=== PATIENT | female | born 1965 | race African-American/Black ===

== ENCOUNTER → 2016-10-31 | Outpatient (CLI) | payer OTHER ==
--- NOTE | 2016-11-01 09:32 | WOMENS IMAGING REPORT ---
EXAM DESCRIPTION: 3D SCREENING MAMMO BILAT COMPLETED DATE/TIME: 10/31/2016 8:49 am REASON FOR STUDY: ROUTINE BILATERAL SCREENING;Z12.31 Z12.31 ENCNTR SCREEN MAMMOGRAM FOR MALIGNANT N EOPLASM OF KHADAR COMPARISON: None. 07/06/2014 TECHNIQUE: Standard craniocaudal and mediolateral oblique views of each breast recorded using Tadpolesa l acquisition. LIMITATIONS: None. FINDINGS: Findings present which are benign by mammographic criteria. No suspicious masses, calcifi cations or architectural distortion. Pertinent benign findings: Stable small benign intramammary lymph nodes Read with the assistance of CAD. .[facility] - R2 Cenova Version 1.3 .[facility] - R2 Cenova Version 1.3 .[facility] - R2 Cenova Version 2.4 .[facility] [place] - R2 Cenova Version 2.4 .[facility] - R2 Office Rep Version 9.2 Benign mammographic findings may include one or more of the following: Smooth masses, popcorn/rim/co arse calcifications, asymmetries, post-procedure changes, and lesions with long-standing stability. IMPRESSION: BENIGN MAMMOGRAPHIC FINDINGS. BIRADS 2 BREAST DENSITY: a. The breasts are almost entirely fatty. BIRAD: 2 BENIGN FINDING(S) RECOMMENDATION: ROUTINE SCREENING COMMENT: The patient has been notified of the results by letter per MQSA requirements. Additional no tification policies are in place for contacting patient with suspicious or incomplete findings. Quality ID #225: The [employer] recommends an annual screening mammogram for women aged 40 years or over. This facility utilizes a reminder system to ensure that all patients receive reminder letters, and/or direct phone calls for appointments. This includes reminders for routine scr eening mammograms, diagnostic mammograms, or other Breast Imaging Interventions when appropriate. Th is patient will be placed in the appropriate reminder system. The [employer] (ACR) has developed recommendations for screening MRI of the breast s in certain patient populations, to be used in conjunction with mammography. Breast MRI surveillanc e may be appropriate for women with more than 20% lifetime risk of developing breast cancer as deter mined by genetic testing, significant family history of the disease, or history of mantle radiation f or Hodgkins Disease. ACR Practice Guidelines 2008. TECHNICAL DOCUMENTATION: FINDING NUMBER: (1) ASSESSMENT: (1) JOB ID: [id number] [employer]- All Rights Reserved
== END ==
LOC: WI 08:29
PROVIDERS: ATTEND Nurse Practitioner Psychiatric/Mental Health
DX: Z12.31 Encounter for screening mammogram for malignant neoplasm of breast (principal)
CPT/HCPCS: 77063; G0202; 77067

== ENCOUNTER 2019-01-27 13:20 | Inpatient (IN) | payer OTHER ==
--- NOTE | 2019-01-27 13:25 | ER Document Report ---
ED Medical Screen (RME) - General Stated Complaint: DIFFICULTY BREATHING Time Seen by Provider: 01/27/19 13:25 Primary Care Provider: CLAYTON KUNZ MD [Primary Care Provider] - Follow up as needed TRAVEL OUTSIDE OF THE [place] IN LAST 30 DAYS: No - HPI Notes: 01/27/19 13:25 Patient is a 53-year-old female with a history of hypertension and hypercholesterolemia who presents complaining of dyspnea on exertion that began today. Patient states that she feels well at rest. She has noticed some swelling to her bilateral lower extremities as well. Denies any prolonged immobilization, distance travel, recent surgery/trauma, personal cancer history, hormone use, smoking, or previous DVT/PE. Denies HERNANDEZ, fever, neck pain, URI, n/v/d, Abd pain, dysuria, back pain, or rash. I have treated and performed a rapid initial assessment of this patient. A comprehensive ED assessment and evaluation of the patient, analysis of test results and completion of medical decision making process will be conducted by additional ED providers. PHYSICAL EXAMINATION: GENERAL: Well-appearing, well-nourished and in no acute distress. A&Ox4. Answers questions appropriately. LUNGS: Breath sounds clear to auscultation bilaterally and equal. No wheezes rales or rhonchi. speaks in 4 word sentences. HEART: Regular rate and rhythm without murmurs, rubs, gallops. Extremities: 2+ pitting edema b/l LE's - Related Data Allergies/Adverse Reactions: No Known Allergies Allergy (Verified 01/27/19 13:24) Past Medical History - Past Medical History Cardiac Medical History: Reports: Hx Hypertension - Immunizations Hx Diphtheria, Pertussis, Tetanus Vaccination: Yes Doctor's Discharge - Discharge Referrals: CLAYTON KUNZ MD [Primary Care Provider] - Follow up as needed
[2019-01-27 14:21] LABS: ABSOLUTE BASOPHILS # (AUTO) 0.1 10^3/uL (0.0-0.2); ABSOLUTE EOSINOPHILS # (AUTO) 0.2 10^3/uL (0.0-0.6); ABSOLUTE LYMPHOCYTES (AUTO) 1.4 10^3/uL (0.5-4.7); ABSOLUTE MONOCYTES (AUTO) 0.4 10^3/uL (0.1-1.4); ABSOLUTE NEUT (AUTO) 5.1 10^3/uL (1.7-8.2); BASOPHILS % (AUTO) 0.8 % (0-2); EOSINOPHILS % (AUTO) 2.2 % (0-6); HEMATOCRIT 35.6 % (36.0-47.0); HEMOGLOBIN 11.4 g/dL (12.0-15.5); LYMPHOCYTES % (AUTO) 19.3 % (13-45); MEAN CORPUSCULAR HEMOGLOBIN 23.9 pg (27.0-33.4); MEAN CORPUSCULAR HGB CONC 32.2 g/dL (32.0-36.0); MEAN CORPUSCULAR VOLUME 74 fl (80-97); MONOCYTES % (AUTO) 5.7 % (3-13); PLATELET COUNT 199 10^3/uL (150-450); RED BLOOD COUNT 4.78 10^6/uL (3.72-5.28); RED CELL DISTRIBUTION WIDTH 17.3 % (11.5-14.0); TOTAL CELLS COUNTED % (AUTO) 100 %; WHITE BLOOD COUNT 7.1 10^3/uL (4.0-10.5)
[2019-01-27 14:23] LABS: VENOUS BLOOD BASE EXCESS 1.7 mmol/L; VENOUS BLOOD HCO3 27.4 mmol/L (20-32); VENOUS BLOOD PCO2 47.9 mmHg (35-63); VENOUS BLOOD PH 7.38 (7.30-7.42)
[2019-01-27 14:28] LABS: INTERNATIONAL RATION (INR) 1.04; PROTHROMBIN TIME 13.6 SEC (11.4-15.4)
[2019-01-27 14:29] LABS: PARTIAL THROMBOPLASTIN TIME 29.7 SEC (23.5-35.8)
[2019-01-27 14:51] LABS: ALBUMIN 3.9 g/dL (3.5-5.0); ALKALINE PHOSPHATASE 63 U/L (38-126); ANION GAP 7 (5-19); ASPARTATE AMINO TRANSFERASE 27 U/L (14-36); BILIRUBIN,DIRECT 0.3 mg/dL (0.0-0.4); BILIRUBIN,TOTAL 0.5 mg/dL (0.2-1.3); BLOOD UREA NITROGEN 15 mg/dL (7-20); CALCIUM 9.5 mg/dL (8.4-10.2); CARBON DIOXIDE 30 mmol/L (22-30); CHLORIDE 104 mmol/L (98-107); GLUCOSE 103 mg/dL (75-110); POTASSIUM 4.1 mmol/L (3.6-5.0); TOTAL PROTEIN 7.3 g/dL (6.3-8.2)
[2019-01-27 15:01] LABS: TROPONIN I 0.016 ng/mL
--- NOTE | 2019-01-27 15:49 | RADIOLOGY REPORT (SQ) ---
EXAM DESCRIPTION: CTA CHEST COMPLETED DATE/TIME: 01/27/2019 3:34 pm REASON FOR STUDY: edward, hypoxia COMPARISON: None. TECHNIQUE: CT scan of the chest performed using helical scanning technique with dynamic intravenous contrast injection. Images reviewed with lung, soft tissue and bone windows. Reconstructed coronal and sagittal MPR images reviewed. Additional 3 dimensional post-processing performed to develop Maximal Intensity Projection images (PR P). All images stored on PACS. All CT scanners at this facility use dose modulation, iterative reconstruction, and/or weight based d osing when appropriate to reduce radiation dose to as low as reasonably achievable (ALARA). [facility]: Dose Right [facility]: CareDose [facility]: Dose Right [facility]: Teradose 4D [facility]: Ataxion CONTRAST TYPE AND DOSE: contrast/concentration: Isovue 350.00 mg/ml; Total Contrast Delivered: 68.0 ml; Total Saline Delivered: 61.0 ml Contrast bolus optimized for the pulmonary arteries. Not diagnostic for the aorta. RENAL FUNCTION: GFR > 60. RADIATION DOSE: CT Rad equipment meets quality standard of care and radiation dose reduction techniq ues were employed. CTDIvol: 19.4 - 39.9 mGy. DLP: 853 mGy-cm. . LIMITATIONS: Marginal contrast bolus, main pulmonary artery = 176 HU FINDINGS: LUNGS AND PLEURA: No masses, infiltrates, or pneumothorax. No pleural effusions or pleura l calcifications. AORTA AND GREAT VESSELS: No aneurysm. Contrast bolus not optimized for the aorta. HEART: No pericardial effusion. No significant coronary artery calcifications. No CT evidence of rig ht heart strain, RV to LV ratio 0.9. PULMONARY ARTERIES: Examination is significantly limited by marginal contrast bolus, main pulmonary a rtery = 176 HU. Within this limitation, there appears to be embolus within the interlobar pulmonary artery in the segmental branches of the right lower lobe and possibly the right middle lobe. Embolus is not appreciated elsewhere although may be present. HILAR AND MEDIASTINAL STRUCTURES: No identified masses or abnormal nodes. HARDWARE: None in the chest. UPPER ABDOMEN: No significant findings. Limited exam. THYROID AND OTHER SOFT TISSUES: No masses. No adenopathy. BONES: No acute or significant finding. 3D MIPS: Confirm above findings. OTHER: No other significant finding. IMPRESSION: 1. Examination is significantly limited by marginal contrast bolus, main pulmonary arter y = 176 HU. Within this limitation, there appears to be embolus within the interlobar pulmonary tung ry in the segmental branches of the right lower lobe and possibly the right middle lobe. Embolus is n ot appreciated elsewhere although may be present. 2. No CT evidence of right heart strain. Correlate with echocardiographic findings. Findings reported to the emergency department by CORE critical findings reporting system at the time of interpretation. COMMENT: Quality ID # [id number]: Final reports with documentation of one or more dose reduction techniques (e.g., Automated exposure control, adjustment of the mA and/or kV according to patient size, use of iterative reconstruction technique) TECHNICAL DOCUMENTATION: JOB ID: [id number] [employer]- All Rights Reserved Reading location - IP/workstation name: [email or web address]
[2019-01-27 15:55] LABS: APPEARANCE,URINE SLIGHTLY-CLOUDY; BILIRUBIN,URINE NEGATIVE (NEGATIVE); COLOR,URINE YELLOW; GLUCOSE, URINE NEGATIVE (NEGATIVE); KETONES,URINE NEGATIVE (NEGATIVE); LEUKOCYTE ESTERASE,URINE NEGATIVE (NEGATIVE); NITRITE,URINE NEGATIVE (NEGATIVE); PROTEIN,URINE NEGATIVE (NEGATIVE); UROBILINOGEN,URINE NEGATIVE mg/dL (<2.0)
--- NOTE | 2019-01-27 17:28 | EKG REPORT ---
SEVERITY:- NORMAL ECG - SINUS RHYTHM : Confirmed by: Emily Morales MD 27-Jan-2019 17:28:10
--- NOTE | 2019-01-27 17:53 | ER Document Report ---
ED Respiratory Problem - General Chief Complaint: Breathing Difficulty Stated Complaint: DIFFICULTY BREATHING Time Seen by Provider: 01/27/19 13:25 Notes: Patient complaining of sudden onset of shortness of breath and difficulty breathing starting about 9 AM this morning. Patient says she felt dizzy first and then felt as if she could not breathe. Has never had anything like this before. Never had any lung disease or pulmonary problems. Never had any blood clots. Does not have any swelling of her legs. Has not had any cough or cold or chest congestion or upper respiratory symptoms. Not running any fever. Patient presents grossly short of breath and breathing rapidly, anxious. Tachycardia. TRAVEL OUTSIDE OF THE [place] IN LAST 30 DAYS: No - Related Data Allergies/Adverse Reactions: No Known Allergies Allergy (Verified 01/27/19 13:24) Past Medical History - Social History Smoking Status: Never Smoker Chew tobacco use (# tins/day): No Frequency of alcohol use: None Drug Abuse: None Family History: Reviewed & Not Pertinent Patient has suicidal ideation: No Patient has homicidal ideation: No - Medical History Medical History: Other - History of anemia. - Past Medical History Cardiac Medical History: Reports: Hx Hypercholesterolemia, Hx Hypertension - Immunizations Hx Diphtheria, Pertussis, Tetanus Vaccination: Yes Review of Systems - Review of Systems Notes: REVIEW OF SYSTEMS: CONSTITUTIONAL : Denies fever. Anxious. Vital signs normal except for heart rate of 110. EENT: Denies eye, ear, nose or mouth or throat pain or other symptoms. CARDIOVASCULAR: Denies chest pain. RESPIRATORY: See HPI. GASTROINTESTINAL: Denies abdominal pain or nausea, vomiting, or diarrhea. GENITOURINARY: Denies difficulty or painful urinating, urinary frequency, blood in urine. MUSCULOSKELETAL: Denies back or neck pain. Denies joint pain or swelling. SKIN: Denies rash or skin lesions. NEUROLOGICAL: Denies LOC or altered mental status. Denies headache. Denies sensory loss or motor deficits. ALL OTHER SYSTEMS REVIEWED AND NEGATIVE. Physical Exam - Vital signs Vitals: Temp Pulse Resp BP Pulse Ox 98.4 F 89 20 146/95 H 100 01/27/19 13:27 01/27/19 13:27 01/27/19 13:27 01/27/19 13:27 01/27/19 13:27 Interpretation: Normal Notes: PHYSICAL EXAMINATION: GENERAL: Obese, approximately 400 pounds, patient who is very anxious and appears to be short of breath and heart rate about 100. HEAD: Atraumatic, normocephalic. EYES: Pupils equal round and reactive to light, extraocular movements intact. ENT: oropharynx clear without exudates. Moist mucous membranes. NECK: Normal range of motion, supple. LUNGS: Breath sounds clear and equal bilaterally. Difficult to auscultate lungs through so much adipose tissue. HEART: Regular rate and rhythm without murmurs. ABDOMEN: Soft, nontender. No guarding or rebound. No masses. BACK: No tenderness throughout entire back. EXTREMITIES: Normal range of motion without pain. Negative Homans bilaterally. NEUROLOGICAL: Normal speech, normal gait. Normal sensory, motor, and reflex exams. Awake, alert, and oriented x3. Cranial nerves normal. PSYCH: Normal mood, normal affect. SKIN: Warm, dry, no rashes. Course - Re-evaluation Re-evalutation: 01/27/19 17:55 CTA shows a fairly large pulmonary embolus of the pulmonary artery and segmental branches of the right lower lobe and possibly the right middle lobe there is no evidence of right heart strain on the CT scan. Patient's primary care provider will be contacted for her to be admitted for anticoagulation. Heparin protocol ordered. - Vital Signs Vital signs: Temp Pulse Resp BP Pulse Ox 97.8 F 72 14 147/83 H 100 01/29/19 11:07 01/29/19 11:07 01/29/19 11:07 01/29/19 11:07 01/29/19 11:07 - Laboratory Result Diagrams: 01/28/19 05:53 01/28/19 05:53 Laboratory results interpreted by me: 01/27/19 14:09 Hgb 11.4 L Hct 35.6 L MCV 74 L MCH 23.9 L RDW 17.3 H - Diagnostic Test Radiology reviewed: Image reviewed, Reports reviewed - CTA shows significant clot in the right lower and middle lobes. No heart strain noted. - EKG Interpretation by Me EKG shows normal: Sinus rhythm Rate: Normal Rhythm: NSR Sharon/QRS: IVCD Critical Care Note - Critical Care Note Total time excluding time spent on procedures (mins): 35 Discharge - Discharge Clinical Impression: Pulmonary embolus Condition: Stable Disposition: ADMITTED INPATIENT Admitting Provider: [facility] Admitted: [facility], [place]
[2019-01-27] MEDS ORDERED: HEPARIN SOD (PORCINE) 1,000 UNIT/ML 10 ML VIAL IV PRN ×2 (18:00→22:12)
[2019-01-27] MEDS: HEPARIN SODIUM,PORCINE/D5W 25,000 UNIT/250 ML RTUINJ IV PRN (18:46)
[2019-01-27] MEDS ORDERED: NORMAL SALINE 1000 ML 1,000 ML IV PRN (19:07)
[2019-01-27 20:16] LABS: ABSOLUTE BASOPHILS # (AUTO) 0.1 10^3/uL (0.0-0.2); ABSOLUTE EOSINOPHILS # (AUTO) 0.2 10^3/uL (0.0-0.6); ABSOLUTE LYMPHOCYTES (AUTO) 2.3 10^3/uL (0.5-4.7); ABSOLUTE MONOCYTES (AUTO) 0.5 10^3/uL (0.1-1.4); ABSOLUTE NEUT (AUTO) 5.3 10^3/uL (1.7-8.2); BASOPHILS % (AUTO) 1.2 % (0-2); EOSINOPHILS % (AUTO) 2.7 % (0-6); HEMATOCRIT 34.5 % (36.0-47.0); HEMOGLOBIN 11.1 g/dL (12.0-15.5); LYMPHOCYTES % (AUTO) 27.1 % (13-45); MEAN CORPUSCULAR HEMOGLOBIN 23.8 pg (27.0-33.4); MEAN CORPUSCULAR HGB CONC 32.1 g/dL (32.0-36.0); MEAN CORPUSCULAR VOLUME 74 fl (80-97); MONOCYTES % (AUTO) 6.1 % (3-13); PLATELET COUNT 195 10^3/uL (150-450); RED BLOOD COUNT 4.65 10^6/uL (3.72-5.28); RED CELL DISTRIBUTION WIDTH 17.4 % (11.5-14.0); SEGMENTED NEUTROPHILS % (AUTO) 62.9 % (42-78); TOTAL CELLS COUNTED % (AUTO) 100 %; WHITE BLOOD COUNT 8.4 10^3/uL (4.0-10.5)
[2019-01-28 06:21] LABS: ABSOLUTE BASOPHILS # (AUTO) 0.1 10^3/uL (0.0-0.2); ABSOLUTE EOSINOPHILS # (AUTO) 0.3 10^3/uL (0.0-0.6); ABSOLUTE LYMPHOCYTES (AUTO) 1.8 10^3/uL (0.5-4.7); ABSOLUTE MONOCYTES (AUTO) 0.4 10^3/uL (0.1-1.4); ABSOLUTE NEUT (AUTO) 4.6 10^3/uL (1.7-8.2); BASOPHILS % (AUTO) 1.1 % (0-2); HEMATOCRIT 34.8 % (36.0-47.0); HEMOGLOBIN 11.2 g/dL (12.0-15.5); LYMPHOCYTES % (AUTO) 24.9 % (13-45); MEAN CORPUSCULAR HEMOGLOBIN 23.9 pg (27.0-33.4); MEAN CORPUSCULAR HGB CONC 32.1 g/dL (32.0-36.0); MEAN CORPUSCULAR VOLUME 75 fl (80-97); PLATELET COUNT 181 10^3/uL (150-450); RED BLOOD COUNT 4.67 10^6/uL (3.72-5.28); RED CELL DISTRIBUTION WIDTH 17.4 % (11.5-14.0); TOTAL CELLS COUNTED % (AUTO) 100 %; WHITE BLOOD COUNT 7.1 10^3/uL (4.0-10.5)
[2019-01-28 06:39] LABS: ALBUMIN 3.7 g/dL (3.5-5.0); ALKALINE PHOSPHATASE 66 U/L (38-126); ANION GAP 6 (5-19); ASPARTATE AMINO TRANSFERASE 30 U/L (14-36); BILIRUBIN,DIRECT 0.2 mg/dL (0.0-0.4); BILIRUBIN,TOTAL 0.6 mg/dL (0.2-1.3); BLOOD UREA NITROGEN 11 mg/dL (7-20); CALCIUM 8.8 mg/dL (8.4-10.2); CARBON DIOXIDE 29 mmol/L (22-30); CHLORIDE 106 mmol/L (98-107); CHOLESTEROL 160.54 mg/dL (0-200); GLUCOSE 93 mg/dL (75-110); POTASSIUM 3.8 mmol/L (3.6-5.0); TOTAL PROTEIN 6.8 g/dL (6.3-8.2); TRIGLYCERIDES 93 mg/dL (<150)
[2019-01-28 06:50] LABS: DIRECT LDL 99 mg/dL (<100)
[2019-01-28] MEDS: HEPARIN SODIUM,PORCINE/D5W 25,000 UNIT/250 ML RTUINJ IV PRN (08:27)
[2019-01-28] MEDS: PANTOPRAZOLE SODIUM 40 MG PACKET.DR NG SCH (08:28)
[2019-01-28] MEDS ORDERED: ASCORBIC ACID 500 MG TABLET PO SCH (10:00)
[2019-01-28] MEDS: HYDROCHLOROTHIAZIDE 12.5 MG TABLET PO SCH (11:30)
[2019-01-28] MEDS: LOSARTAN POTASSIUM 25 MG TABLET PO SCH (11:31)
[2019-01-28] MEDS: CYANOCOBALAMIN (VITAMIN B-12) 1,000 MCG TABLET PO SCH (11:31)
[2019-01-28] MEDS: FERROUS SULFATE 325 MG TABLET PO SCH (11:31)
[2019-01-28] MEDS: ATORVASTATIN CALCIUM 10 MG TABLET PO SCH (11:32)
--- NOTE | 2019-01-28 12:21 | RADIOLOGY REPORT (SQ) ---
EXAM DESCRIPTION: VENOUS BILATERAL LOWER COMPLETED DATE/TIME: 01/28/2019 11:23 am REASON FOR STUDY: Acute Pulmonary Embolism COMPARISON: None. TECHNIQUE: Dynamic and static licea scale and color images acquired of both lower extremity venous sy stems. Selected spectral images acquired with additional compression and augmentation maneuvers. Imag es stored on PACS. LIMITATIONS: Limited visualization. FINDINGS: RIGHT LEG COMMON FEMORAL AND FEMORAL: Normal phasicity, compression and augmentation. No visualized echogenic m aterial on licea scale. No defects on color images. POPLITEAL: Normal compression and augmentation. No visualized echogenic material on licea scale. No de fects on color images. CALF VESSELS: Normal compression and augmentation. No visualized echogenic material on licea scale. No defects on color image. GSV AND SSV: Normal compression. No visualized echogenic material on licea scale. No defects on color images. ANY DEEP VENOUS INSUFFICIENCY: Not evaluated. ANY EVIDENCE OF POPLITEAL CYST: No. OTHER: No other significant finding. LEFT LEG COMMON FEMORAL AND FEMORAL: Normal phasicity, compression and augmentation. No visualized echogenic m aterial on licea scale. No defects on color images. POPLITEAL: Normal compression and augmentation. No visualized echogenic material on licea scale. No de fects on color images. CALF VESSELS: Normal compression and augmentation. No visualized echogenic material on licea scale. No defects on color images. GSV AND SSV: Normal compression. No visualized echogenic material on licea scale. No defects on color images. ANY DEEP VENOUS INSUFFICIENCY: Not evaluated. ANY EVIDENCE POPLITEAL CYST: No. OTHER: No other significant finding. IMPRESSION: NO EVIDENCE DVT OR SVT IN EITHER LEG. TECHNICAL DOCUMENTATION: JOB ID: [id number] [employer]- All Rights Reserved Reading location - IP/workstation name: [email or web address]-
[2019-01-28] MEDS ORDERED: DIPHENHYDRAMINE HCL 25 MG CAPSULE PO ONE ×2 (14:00→20:00)
[2019-01-28] MEDS: ASCORBIC ACID 500 MG TABLET PO SCH (14:12)
--- NOTE | 2019-01-28 15:03 | PDOC H&P ---
History of Present Illness Admission Date/PCP: 01/27/19 18:26 CLAYTON JOAQUINA Patient complains of: Difficulty with breathing History of Present Illness: STACY BERNARD is a 53 year old female known to my practice who presented to the Ed following sudden onset of difficulty with breathing. Patient reported that on the morning of her presenting day, she suddenly became short of breath upon walking out of her mother's house. She managed to get back inside the house to the laundry area and lean on the dryer. her sister subsequently called [phone] and the insect control aide personnel assessed her on site with recommendation to come to the ED for further evaluation and management. because her assessment did not revealed any identified source for her shortness of breathe and resolution of her symptom she decided against coming to the ED. She subsequently developed intermittent shortness of breath with exertion after walking few steps in her mother's house. Due to the recurrence of her symptoms and worsening intensity, her sister decided to bring her to the ED. Her evaluation at the ED revealed anxiety, tachycardia and tachypnea with concern for possible pulmonary embolism. Her CTPA revealed segmental pulmonary artery embolism. She denied any recent instrumentation r surgery. No definite immobility although her knee arthritis do limit her mobility. She denied any long distant traveling or driving. She denied oral contraceptive usage, tobacco usage or injection drug abuse. No prior history of DVT or blood clot. She was started on IV Heparin infusion based on Pulmonary embolism protocol for dosing. Her morbidities include hypertension, hyperlipidemia, iron deficiency anemia, osteoarthritis with knee pain and morbid obesity. Past Medical History Cardiac Medical History: Reports: Hyperlipidema, Hypertension Musculoskeltal Medical History: Reports: Arthritis - with knee pain Psychiatric Medical History: Reports: None Traumatic Medical History: Reports: None Hematology: Reports: Anemia - iron deficiency type Denies: None, Hemophilia, Sickle Cell Disease, Bleeding Tendencies, Heparin Induced Thrombocytopenia, Neutropenia, Other Infectious Medical History: Reports: None Past Surgical History Past Surgical History: Reports: None Social History Smoking Status: Never Smoker - Advance Directive Resuscitation Status: Full Code Family History Family History: Reviewed & Not Pertinent Parental Family History Reviewed: Yes Children Family History Reviewed: Yes Sibling(s) Family History Reviewed.: Yes Medication/Allergy Home Medications: Aspirin [Adult Low Dose Aspirin EC] 81 mg PO DAILY 01/27/19 Atorvastatin Calcium [Lipitor 10 mg Tablet] 10 mg PO DAILY 01/27/19 Cyanocobalamin (Vitamin B-12) [Vitamin B-12] 1,000 mcg PO DAILY 01/27/19 Ferrous Sulfate [Iron] 650 mg PO DAILY 01/27/19 Hydrochlorothiazide [Hydrodiuril 12.5 mg Tablet] 12.5 mg PO DAILY 01/27/19 Losartan Potassium [Cozaar 25 mg Tablet] 25 mg PO DAILY 01/27/19 Allergies/Adverse Reactions: No Known Allergies Allergy (Verified 01/27/19 13:24) Review of Systems Constitutional: ABSENT: chills, fever(s), headache(s), weight gain, weight loss Eyes: ABSENT: visual disturbances Ears: ABSENT: hearing changes Nose, Mouth, and Throat: ABSENT: as per HPI, headache(s), mouth pain, sore throat, vertigo, other Cardiovascular: PRESENT: dyspnea on exertion. ABSENT: as per HPI, chest pain, edema, orthropnea, palpitations, other Respiratory: PRESENT: dyspnea. ABSENT: as per HPI, cough, hemoptysis, sputum, other Gastrointestinal: ABSENT: abdominal pain, constipation, diarrhea, hematemesis, hematochezia, nausea, vomiting Genitourinary: ABSENT: dysuria, hematuria Musculoskeletal: PRESENT: deformity - knee joint related to arthritis Integumentary: ABSENT: rash, wounds Neurological: ABSENT: abnormal gait, abnormal speech, confusion, dizziness, focal weakness, syncope Psychiatric: PRESENT: anxiety. ABSENT: depression, hallucinations, homidical ideation, suicidal ideation Endocrine: ABSENT: cold intolerance, heat intolerance, menstrual abnormalities, polydipsia, polyuria Hematologic/Lymphatic: ABSENT: easy bleeding, easy bruising, lymphadenopathy Allergic/Immunologic: ABSENT: seasonal rhinorrhea Physical Exam Vital Signs: Temp Pulse Resp BP Pulse Ox 98.0 F 95 22 H 142/93 H 100 01/27/19 13:35 01/27/19 13:35 01/27/19 17:01 01/27/19 17:01 01/27/19 17:01 Intake & Output 01/26/19 01/27/19 01/28/19 06:59 06:59 06:59 Weight 193.7 kg General appearance: PRESENT: morbidly obese Head exam: PRESENT: atraumatic, normocephalic Eye exam: PRESENT: conjunctiva pink, EOMI, PERRLA. ABSENT: scleral icterus Ear exam: PRESENT: normal external ear exam Mouth exam: PRESENT: moist, tongue midline Neck exam: PRESENT: full ROM. ABSENT: carotid bruit, JVD, lymphadenopathy, thyromegaly Respiratory exam: PRESENT: clear to auscultation ale Cardiovascular exam: PRESENT: RRR, +S1, +S2. ABSENT: diastolic murmur, rubs, systolic murmur Pulses: PRESENT: normal dorsalis pedis pul, +2 pedal pulses bilateral Vascular exam: PRESENT: normal capillary refill. ABSENT: pallor GI/Abdominal exam: PRESENT: normal bowel sounds, soft. ABSENT: distended, guar ding, mass, organolmegaly, rebound, tenderness Rectal exam: PRESENT: deferred Musculoskeletal exam: PRESENT: deformity - related to knee joint arthritis. ABSENT: tenderness Neurological exam: PRESENT: alert, awake, oriented to person, oriented to place, oriented to time, oriented to situation, CN II-XII grossly intact. ABSENT: motor sensory deficit Psychiatric exam: PRESENT: anxious, appropriate affect, normal mood. ABSENT: homicidal ideation, suicidal ideation Skin exam: PRESENT: dry, intact, warm. ABSENT: cyanosis, rash Results Laboratory Results: 01/27/19 14:09 01/27/19 14:09 01/27/19 01/27/19 01/27/19 14:09 14:09 14:09 WBC 7.1 RBC 4.78 Hgb 11.4 L Hct 35.6 L MCV 74 L MCH 23.9 L MCHC 32.2 RDW 17.3 H Plt Count 199 Seg Neutrophils % 72.0 VBG pH 7.38 VBG pCO2 47.9 VBG HCO3 27.4 VBG Base Excess 1.7 Sodium 140.5 Potassium 4.1 Chloride 104 Carbon Dioxide 30 Anion Gap 7 BUN 15 Creatinine 0.96 Est GFR ( Amer) > 60 Glucose 103 Calcium 9.5 Total Bilirubin 0.5 AST 27 Alkaline Phosphatase 63 Total Protein 7.3 Albumin 3.9 Urine Color Urine Appearance Urine pH Ur Specific [place] Urine Protein Urine Glucose (UA) Urine Ketones Urine Blood Urine Nitrite Ur Leukocyte Esterase Urine WBC (Auto) Urine RBC (Auto) 01/27/19 15:26 WBC RBC Hgb Hct MCV MCH MCHC RDW Plt Count Seg Neutrophils % VBG pH VBG pCO2 VBG HCO3 VBG Base Excess Sodium Potassium Chloride Carbon Dioxide Anion Gap BUN Creatinine Est GFR ( Amer) Glucose Calcium Total Bilirubin AST Alkaline Phosphatase Total Protein Albumin Urine Color YELLOW Urine Appearance SLIGHTLY-CLOUDY Urine pH 5.0 Ur Specific [place] 1.020 Urine Protein NEGATIVE Urine Glucose (UA) NEGATIVE Urine Ketones NEGATIVE Urine Blood NEGATIVE Urine Nitrite NEGATIVE Ur Leukocyte Esterase NEGATIVE Urine WBC (Auto) 1 Urine RBC (Auto) 1 01/27/19 14:09 Troponin I 0.016 NT-Pro-B Natriuret Pep 290 Impressions: Chest/Abdomen CTA 01/27/19 13:29 IMPRESSION: 1. Examination is significantly limited by marginal contrast bolus, main pulmonary artery = 176 HU. Within this limitation, there appears to be embolus within the interlobar pulmonary artery in the segmental branches of the right lower lobe and possibly the right middle lobe. Embolus is not appreciated elsewhere although may be present. 2. No CT evidence of right heart strain. Correlate with echocardiographic findings. Findings reported to the emergency department by CORE critical findings reporting system at the time of interpretation. Assessment & Plan - Diagnosis (1) Acute pulmonary embolism without acute cor pulmonale Qualifiers: Pulmonary embolism type: unspecified Qualified Code(s): I26.99 - Other pulmonary embolism without acute cor pulmonale Is this a current diagnosis for this admission?: Yes Plan: See admitting attending physician orders for care plan details. (2) HTN (hypertension) Qualifiers: Hypertension type: essential hypertension Qualified Code(s): I10 - Essential (primary) hypertension Is this a current diagnosis for this admission?: Yes Plan: See admitting attending physician orders for care plan details. (3) HLD (hyperlipidemia) Qualifiers: Hyperlipidemia type: unspecified Qualified Code(s): E78.5 - Hyperlipidemia, unspecified Is this a current diagnosis for this admission?: Yes Plan: See admitting attending physician orders for care plan details. (4) Osteoarthritis involving multiple joints on both sides of body Is this a current diagnosis for this admission?: Yes Plan: See admitting attending physician orders for care plan details. (5) Morbid obesity with BMI of 60.0-69.9, adult Is this a current diagnosis for this admission?: Yes Plan: See admitting attending physician orders for care plan details. - Time Time Spent: 50 to 70 Minutes Medications reviewed and adjusted accordingly: Yes Anticipated discharge: Home Within: Other - Inpatient Certification Based on my medical assessment, after consideration of the patient's comorbidities, presenting symptoms, or acuity I expect that the services needed warrant INPATIENT care.: Yes I certify that my determination is in accordance with my understanding of Medicare's requirements for reasonable and necessary INPATIENT services [42 CFR 412.3e].: Yes Medical Necessity: Significant Comorbidiites Make Outpatient Treatment Too Risky, Need For Continuous Telemetry Monitoring, Risk of Complication if Not Cared For in Hospital, Risk of Diagnosis Which Will Require Inpatient Eval/Care/Monitoring Post Hospital Care: D/C Rigging [place] Documentation - Plan Summary Plan Summary: See admitting attending physician orders for care plan details.
--- NOTE | 2019-01-28 15:08 | PDOC PROGRESS REPORT ---
Subjective Progress Note for:: 01/28/19 Subjective:: Patient reported feeling better with her breathing this morning. No chest pain. No fever or chills. she reported resolved headache. No nausea, vomiting, or abdominal pain. Reason For Visit: ACUTE PULMONARY EMBOLISM, HYPERTENSION, Physical Exam Vital Signs: Temp Pulse Resp BP Pulse Ox 98.2 F 74 18 134/81 H 99 01/28/19 04:15 01/28/19 04:15 01/28/19 04:15 01/28/19 04:15 01/28/19 04:15 Intake & Output 01/27/19 01/28/19 01/29/19 06:59 06:59 06:59 Intake Total 120 Balance 120 Weight 193.4 kg General appearance: PRESENT: no acute distress, morbidly obese Head exam: PRESENT: atraumatic, normocephalic Eye exam: PRESENT: conjunctiva pink. ABSENT: scleral icterus Ear exam: PRESENT: normal external ear exam Mouth exam: PRESENT: moist Respiratory exam: PRESENT: clear to auscultation ale Cardiovascular exam: PRESENT: RRR, +S1, +S2. ABSENT: diastolic murmur, rubs, systolic murmur Vascular exam: ABSENT: pallor GI/Abdominal exam: PRESENT: normal bowel sounds, soft. ABSENT: distended, guarding, mass, organolmegaly, rebound, tenderness Extremities exam: ABSENT: pedal edema Musculoskeletal exam: PRESENT: deformity - related to joint involvement with a rthritis, tenderness - right knee joint Neurological exam: PRESENT: alert, awake, oriented to person, oriented to place, oriented to time, oriented to situation, CN II-XII grossly intact. ABSENT: motor sensory deficit Psychiatric exam: PRESENT: appropriate affect, normal mood. ABSENT: homicidal ideation, suicidal ideation Skin exam: PRESENT: dry, warm Results Laboratory Results: 01/28/19 05:53 01/28/19 05:53 01/27/19 01/27/19 01/27/19 14:09 14:09 14:09 WBC 7.1 RBC 4.78 Hgb 11.4 L Hct 35.6 L MCV 74 L MCH 23.9 L MCHC 32.2 RDW 17.3 H Plt Count 199 Seg Neutrophils % 72.0 VBG pH 7.38 VBG pCO2 47.9 VBG HCO3 27.4 VBG Base Excess 1.7 Sodium 140.5 Potassium 4.1 Chloride 104 Carbon Dioxide 30 Anion Gap 7 BUN 15 Creatinine 0.96 Est GFR ( Amer) > 60 Glucose 103 Calcium 9.5 Total Bilirubin 0.5 AST 27 Alkaline Phosphatase 63 Total Protein 7.3 Albumin 3.9 Triglycerides Cholesterol LDL Cholesterol Direct VLDL Cholesterol HDL Cholesterol Urine Color Urine Appearance Urine pH Ur Specific [place] Urine Protein Urine Glucose (UA) Urine Ketones Urine Blood Urine Nitrite Ur Leukocyte Esterase Urine WBC (Auto) Urine RBC (Auto) 01/27/19 01/27/19 01/28/19 15:26 19:51 05:53 WBC 8.4 7.1 RBC 4.65 4.67 Hgb 11.1 L 11.2 L Hct 34.5 L 34.8 L MCV 74 L 75 L MCH 23.8 L 23.9 L MCHC 32.1 32.1 RDW 17.4 H 17.4 H Plt Count 195 181 Seg Neutrophils % 62.9 64.0 VBG pH VBG pCO2 VBG HCO3 VBG Base Excess Sodium Potassium Chloride Carbon Dioxide Anion Gap BUN Creatinine Est GFR ( Amer) Glucose Calcium Total Bilirubin AST Alkaline Phosphatase Total Protein Albumin Triglycerides Cholesterol LDL Cholesterol Direct VLDL Cholesterol HDL Cholesterol Urine Color YELLOW Urine Appearance SLIGHTLY-CLOUDY Urine pH 5.0 Ur Specific [place] 1.020 Urine Protein NEGATIVE Urine Glucose (UA) NEGATIVE Urine Ketones NEGATIVE Urine Blood NEGATIVE Urine Nitrite NEGATIVE Ur Leukocyte Esterase NEGATIVE Urine WBC (Auto) 1 Urine RBC (Auto) 1 01/28/19 05:53 WBC RBC Hgb Hct MCV MCH MCHC RDW Plt Count Seg Neutrophils % VBG pH VBG pCO2 VBG HCO3 VBG Base Excess Sodium 141.0 Potassium 3.8 Chloride 106 Carbon Dioxide 29 Anion Gap 6 BUN 11 Creatinine 0.85 Est GFR ( Amer) > 60 Glucose 93 Calcium 8.8 Total Bilirubin 0.6 AST 30 Alkaline Phosphatase 66 Total Protein 6.8 Albumin 3.7 Triglycerides 93 Cholesterol 160.54 LDL Cholesterol Direct 99 VLDL Cholesterol 19.0 HDL Cholesterol 32 L Urine Color Urine Appearance Urine pH Ur Specific [place] Urine Protein Urine Glucose (UA) Urine Ketones Urine Blood Urine Nitrite Ur Leukocyte Esterase Urine WBC (Auto) Urine RBC (Auto) 01/27/19 14:09 Troponin I 0.016 NT-Pro-B Natriuret Pep 290 Impressions: Chest/Abdomen CTA 01/27/19 13:29 IMPRESSION: 1. Examination is significantly limited by marginal contrast bolus, main pulmonary artery = 176 HU. Within this limitation, there appears to be embolus within the interlobar pulmonary artery in the segmental branches of the right lower lobe and possibly the right middle lobe. Embolus is not appreciated elsewhere although may be present. 2. No CT evidence of right heart strain. Correlate with echocardiographic findings. Findings reported to the emergency department by [facility] critical findings reporting system at the time of interpretation. Assessment & Plan - Diagnosis (1) Acute pulmonary embolism without acute cor pulmonale Qualifiers: Pulmonary embolism type: unspecified Qualified Code(s): I26.99 - Other pulmonary embolism without acute cor pulmonale Is this a current diagnosis for this admission?: Yes Plan: Continue IV Heparin infusion with plan to transition to Xarelto or Eliquis in the next 24 hours. (2) HTN (hypertension) Qualifiers: Hypertension type: essential hypertension Qualified Code(s): I10 - Essential (primary) hypertension Is this a current diagnosis for this admission?: Yes Plan: Continue preadmission medication management. (3) HLD (hyperlipidemia) Qualifiers: Hyperlipidemia type: unspecified Qualified Code(s): E78.5 - Hyperlipidemia, unspecified Is this a current diagnosis for this admission?: Yes Plan: Continue preadmission medication management. (4) Osteoarthritis involving multiple joints on both sides of body Is this a current diagnosis for this admission?: Yes Plan: Continue preadmission medication management. (5) Morbid obesity with BMI of 60.0-69.9, adult Is this a current diagnosis for this admission?: Yes Plan: Continue preadmission medication management. - Time Time Spent with patient: 25-34 minutes Medications reviewed and adjusted accordingly: Yes Anticipated discharge: Home Within: Other - Inpatient Certification Based on my medical assessment, after consideration of the patient's comorbidities, presenting symptoms, or acuity I expect that the services needed warrant INPATIENT care.: Yes I certify that my determination is in accordance with my understanding of Medicare's requirements for reasonable and necessary INPATIENT services [42 CFR 412.3e].: Yes Medical Necessity: Significant Comorbidiites Make Outpatient Treatment Too Risky, Need Close Monitoring Due to Risk of Patient Decompensation, Need For IV Fluids, Need For Continuous Telemetry Monitoring, Risk of Complication if Not Cared For in Hospital, Risk of Diagnosis Which Will Require Inpatient Eval/Care/Monitoring 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 Continue preadmission medication management.
[2019-01-28] MEDS ORDERED: HYDROCODONE/ACETAMINOPHEN 5-325 MG TABLET PO PRN (16:15)
--- NOTE | 2019-01-28 19:02 | XCELERA REPORT ---
[address] [address] Transthoracic Echocardiogram Report Name: STACY BERNARD Age: 53 yrs Gender: Female : 1965 Patient Status: Inpatient Patient Location: [address] [place] [address] Study Date: 01/28/2019 09:51 AM Height: 69 in Weight: 427 lb BSA: 2.9 m2 Procedure: A two-dimensional transthoracic echocardiogram with color flow and Doppler was performed. The study was technically difficult with many images being suboptimal in quality. The study was technically limited with all images being suboptimal in quality. Reason For Study: Acute Pulmonary Embolism, HTN, History: Acute Pulmonary Embolism, HTN,. Ordering Physician: CLAYTON KUNZ Performed By: Dalila Ramires Interpretation Summary The left ventricle is normal in size. There is normal left ventricular wall thickness. LV EF is > than 65% The left ventricular ejection fraction is within normal limits. Doppler measurements suggest normal left ventricular diastolic function The left ventricular wall motion is normal. There is no thrombus. Cannot assess ASD ,VSD , or PFO. The right ventricle is not well visualized secondary to technical limitations The right atrium is normal. The left atrial size is normal. There is no evidence of mitral valve prolapse. There is no vegetation seen on the mitral valve. There is no mitral valve stenosis. There is a trace amount of mitral regurgitation There is no aortic valvular vegetation. There is aortic sclerosis without aortic stenosis. No aortic regurgitation is present. There is no tricuspid stenosis. There is moderate pulmonary hypertension by echo Probable trace to mild TR.RVSP is 52 to to 57 mm of Hg , with RA mean of of 10 to 15. There is no pulmonic valvular stenosis. There is a trace amount of pulmonic regurgitation The aortic root is normal size. The inferior vena cava appeared normal and decreased < 50% with respiration (RAP 10-15 mmHg) There is no pericardial effusion. MMode/2D Measurements & Calculations RVDd: 2.9 cm LVIDd: 5.5 cm FS: 41.3 % Ao root diam: 3.0 cm IVSd: 1.0 cm LVIDs: 3.2 cm EDV(Teich): 145.4 ml Ao root area: 6.8 cm2 LVPWd: 0.95 cm ESV(Teich): 41.2 ml LA dimension: 3.6 cm EF(Teich): 71.7 % Doppler Measurements & Calculations MV E max chelsie: MV P1/2t max chelsie: Ao V2 max: LV V1 max P.7 cm/sec 100.7 cm/sec 174.5 cm/sec 8.4 mmHg MV A max chelsie: MV P1/2t: 49.7 msec Ao max PG: LV V1 max: 85.9 cm/sec MVA(P1/2t): 4.4 cm2 12.2 mmHg 144.6 cm/sec MV E/A: 1.2 MV dec slope: 593.5 cm/sec2 MV dec time: 0.17 sec PA V2 max: PI end-d chelsie: TR max chelsie: MV P1/2t-pr_phl: 93.3 cm/sec 117.0 cm/sec 324.6 cm/sec 49.7 msec PA max PG: TR max P.5 mmHg 42.1 mmHg Left Ventricle The left ventricle is normal in size. There is normal left ventricular wall thickness. LV EF is > than 65%. The left ventricular ejection fraction is within normal limits. Doppler measurements suggest normal left ventricular diastolic function. The left ventricular wall motion is normal. There is no thrombus. Cannot assess ASD ,VSD , or PFO. Right Ventricle The right ventricle is not well visualized secondary to technical limitations. Atria The right atrium is normal. The left atrial size is normal. Mitral Valve There is no evidence of mitral valve prolapse. There is no vegetation seen on the mitral valve. There is no mitral valve stenosis. There is a trace amount of mitral regurgitation. Aortic Valve There is no aortic valvular vegetation. There is aortic sclerosis without aortic stenosis. No aortic regurgitation is present. Tricuspid Valve There is no tricuspid stenosis. There is moderate pulmonary hypertension by echo. Probable trace to mild TR.RVSP is 52 to to 57 mm of Hg , with RA mean of of 10 to 15. Pulmonic Valve There is no pulmonic valvular stenosis. There is a trace amount of pulmonic regurgitation. Great Vessels The aortic root is normal size. The inferior vena cava appeared normal and decreased < 50% with respiration (RAP 10-15 mmHg). Effusions There is no pericardial effusion. : CLAYTON KUNZ > Emily Morales
[2019-01-29] MEDS: HEPARIN SODIUM,PORCINE/D5W 25,000 UNIT/250 ML RTUINJ IV PRN (01:58)
[2019-01-29] MEDS: PANTOPRAZOLE SODIUM 40 MG PACKET.DR NG SCH (06:51)
[2019-01-29] MEDS: FERROUS SULFATE 325 MG TABLET PO SCH (10:23)
[2019-01-29] MEDS: LOSARTAN POTASSIUM 25 MG TABLET PO SCH (10:23)
[2019-01-29] MEDS: CYANOCOBALAMIN (VITAMIN B-12) 1,000 MCG TABLET PO SCH (10:24)
[2019-01-29] MEDS: ATORVASTATIN CALCIUM 10 MG TABLET PO SCH (10:24)
[2019-01-29] MEDS: HYDROCHLOROTHIAZIDE 12.5 MG TABLET PO SCH (10:24)
[2019-01-29] MEDS: ASCORBIC ACID 500 MG TABLET PO SCH (10:24)
--- NOTE | 2019-01-29 12:33 | PDOC DISCHARGE SUMMARY ---
General - Admit/Disc Date/PCP Admission Date/Primary Care Provider: 01/27/19 18:26 CLAYTON JOAQUINA Discharge Date: 01/29/19 - Additional Information Resuscitation Status: Full Code Prescriptions: Apixaban [Eliquis 5 mg Tablet] 5 mg PO BID #60 tablet Home Medications: Atorvastatin Calcium [Lipitor 10 mg Tablet] 10 mg PO DAILY 01/27/19 Cyanocobalamin (Vitamin B-12) [Vitamin B-12] 1,000 mcg PO DAILY 01/27/19 Ferrous Sulfate [Iron] 650 mg PO DAILY 01/27/19 Hydrochlorothiazide [Hydrodiuril 12.5 mg Tablet] 12.5 mg PO DAILY 01/27/19 Losartan Potassium [Cozaar 25 mg Tablet] 25 mg PO DAILY 01/27/19 Apixaban [Eliquis 5 mg Tablet] 5 mg PO BID #60 tablet 01/29/19 History of Present Illness History of Present Illness: STACY BERNARD is a 53 year old female, she was admitted when she presented with shortness of breath CAT scan angiography of the chest demonstrated pulmonary embolism Hospital Course Hospital Course: Patient was admitted for the management of acute pulmonary embolism she was treated with heparin infusion, I saw her today on the floor, she is stable she is maintaining adequate oxygen saturation. The intravenous heparin will be transitioned to p.o. Eliquis Physical Exam Vital Signs: Temp Pulse Resp BP Pulse Ox 97.8 F 72 14 147/83 H 100 01/29/19 11:07 01/29/19 11:07 01/29/19 11:07 01/29/19 11:07 01/29/19 11:07 Intake & Output 01/28/19 01/29/19 01/30/19 06:59 06:59 06:59 Intake Total 120 1680 Output Total 500 Balance 120 1180 Weight 193.4 kg 187.6 kg General appearance: PRESENT: no acute distress, well-developed, well-nourished Head exam: PRESENT: atraumatic, normocephalic Eye exam: PRESENT: conjunctiva pink, EOMI, PERRLA Ear exam: PRESENT: normal external ear exam Mouth exam: PRESENT: moist, tongue midline Neck exam: PRESENT: full ROM Respiratory exam: PRESENT: clear to auscultation ale Cardiovascular exam: PRESENT: RRR, +S1, +S2 Vascular exam: PRESENT: normal capillary refill GI/Abdominal exam: PRESENT: normal bowel sounds, soft Rectal exam: PRESENT: deferred Neurological exam: PRESENT: alert, CN II-XII grossly intact Psychiatric exam: PRESENT: appropriate affect, normal mood Skin exam: PRESENT: dry, intact, warm Results Laboratory Results: 01/28/19 05:53 01/28/19 05:53 01/27/19 14:09 Troponin I 0.016 NT-Pro-B Natriuret Pep 290 Impressions: Chest/Abdomen CTA 01/27/19 13:29 IMPRESSION: 1. Examination is significantly limited by marginal contrast bolus, main pulmonary artery = 176 HU. Within this limitation, there appears to be embolus within the interlobar pulmonary artery in the segmental branches of the right lower lobe and possibly the right middle lobe. Embolus is not appreciated elsewhere although may be present. 2. No CT evidence of right heart strain. Correlate with echocardiographic findings. Findings reported to the emergency department by [facility] critical findings reportin g system at the time of interpretation. Venous Doppler Study 01/28/19 00:00 IMPRESSION: NO EVIDENCE DVT OR SVT IN EITHER LEG. Qualifiers - * PATIENT BEING DISCHARGED WITH ANY OF THE FOLLOWING DIAGNOSIS: VTE (PE or DVT) VTE patient discharged on overlapping Therapy?: Yes Stroke Pt being discharged on Anti-thrombolytic therapy?: No Reason(s) for not prescribing Anti-thrombolytic therapy:: Not indicated Reason(s) for not prescribing Anti-coagulation therapy:: Not indicated Stroke Pt being discharged on Statins?: No Reason(s) for not prescribing Statins therapy:: Not indicated DE Pt being discharged on Aspirin therapy?: No Reason(s) for not prescribing Aspirin therapy:: Not indicated DE Pt being discharged on Statins?: No Reason(s) for not prescribing Statin therapy:: Not indicated DE Pt discharged ACEI/ARBS?: No Reason(s) for not prescribing ACEI/ARBS:: Not indicated Acute Heart Failure - Is this a Heart Failure Patient?: No 3. Anticoagulant therapy for permanect/persistent/paraoxysmal Afib or Aflutter: Yes
[2019-01-29 13:25] VITALS: BP 139/88
[2019-01-29] MEDS ORDERED: APIXABAN 5 MG TABLET PO SCH (13:30)
== END 2019-01-29 13:24 | disposition home or self-care (01) | DRG 176 ==
LOC: ER 13:20 → EH 18:26 → 3S 20:19
PROVIDERS: ADMIT Internal Medicine Geriatric Medicine; ATTEND Internal Medicine Geriatric Medicine
DX: I26.99 Other pulmonary embolism without acute cor pulmonale (principal); Z68.44 Body mass index [BMI] 60.0-69.9, adult; I10 Essential (primary) hypertension; R00.0 Tachycardia, unspecified; E78.00 Pure hypercholesterolemia, unspecified; E66.01 Morbid (severe) obesity due to excess calories; Z79.82 Long term (current) use of aspirin; Z79.899 Other long term (current) drug therapy
CPT/HCPCS: 36415; 71275; 80053; 80061; 81001; 82803; 83880; 84484; 85025; 85379; 85610; 85730; 93005; 93010; 93306; 93970; 99285; J1644; J3490; J7030

== ENCOUNTER → 2019-05-25 | Outpatient (CLI) | payer OTHER ==
--- NOTE | 2019-05-26 11:03 | WOMENS IMAGING REPORT ---
EXAM DESCRIPTION: 3D SCREENING MAMMO BILAT COMPLETED DATE/TIME: 05/25/2019 11:34 am REASON FOR STUDY: Z12.31 SCREENING MAMMO Z12.31 ENCNTR SCREEN MAMMOGRAM FOR MALIGNANT NEOPLASM OF B RE COMPARISON: 2014 EXAM PARAMETERS: Views: Standard craniocaudal and mediolateral oblique views of each breast recorded using digital acquisition and breast tomosynthesis. Read with the assistance of CAD. .[facility] - [employer] Version 9.2 LIMITATIONS: None. FINDINGS: No suspicious masses, suspicious calcifications or architectural distortion. No areas of c oncern. IMPRESSION: NEGATIVE MAMMOGRAM. BIRADS 1. BREAST DENSITY: a. The breasts are almost entirely fatty. BIRAD: ASSESSMENT: 1 NEGATIVE RECOMMENDATION: ROUTINE SCREENING COMMENT: The patient has been notified of the results by letter per MQSA requirements. Additional no tification policies are in place for contacting patient with suspicious or incomplete findings. Quality ID #[id number]: [employer] [place] [employer] recommends an annual screening mammogram for women aged 40 years or over. This facility utilizes a reminder system to ensure that all patients receive reminder letters, and/or direct phone calls for appointments. This includes reminders for routine scr eening mammograms, diagnostic mammograms, or other Breast Imaging Interventions when appropriate. Th is patient will be placed in the appropriate reminder system. TECHNICAL DOCUMENTATION: FINDING NUMBER: (1) ASSESSMENT: (1) JOB ID: [id number] [employer]- All Rights Reserved Reading location - IP/workstation name: [email or web address]
== END ==
LOC: WI 10:50
PROVIDERS: ATTEND Internal Medicine Geriatric Medicine
DX: Z12.31 Encounter for screening mammogram for malignant neoplasm of breast (principal)
CPT/HCPCS: 77063; 77067